=== PATIENT | male | born 1985 | race African-American/Black ===

== ENCOUNTER 2016-07-06 23:01 | Emergency (ER) | payer OTHER ==
[~2016-07-06] VITALS: Ht 190.5 cm; Wt 149.5 kg
[2016-07-07 00:15] LABS: CHLORIDE 106 mEq/L (99-109); POTASSIUM 3.8 mEq/L (3.7-5.4); SODIUM 143 mEq/L (136-147)
[2016-07-07 00:17] LABS: GLUCOSE 96 mg/dL (70-99)
[2016-07-07 00:18] LABS: ANION GAP 10 MEQ/L (2-14)
[2016-07-07 00:21] LABS: GFR ESTIMATE (CALCULATED) > 59 mL/min/
[2016-07-07 00:22] LABS: UREA NITROGEN (BUN) 10 mg/dL (9-23)
[2016-07-07 01:08] LABS: EOSINOPHIL (%) 2.3 % (0-5); EOSINOPHIL COUNT 0.3 K/uL (0-0.3); HEMATOCRIT 43.9 % (38.0-50.0); IMMATURE GRANULOCYTE (%) 0.3 % (0.0-0.7); INSTRUMENT ABS NEUTROPHIL CT 6.3 K/uL; LYMPHOCYTE COUNT 3.6 K/uL (1.0-2.8); MCH 26.5 PG (29.0-34.0); MCHC 32.8 G/DL (30.0-36.0); MCV 80.8 FL (86-99); MEAN PLAT.VOLUME 10.6 uM^3 (9.0-12.4); MONOCYTE (%) 4.6 % (3-12); MONOCYTE COUNT 0.5 K/uL (0-0.8); NEUTROPHIL (%) 58.9 % (45-76); NEUTROPHIL COUNT 6.3 K/uL (1.8-6.4); PLATELET COUNT 255 K/uL (156-360); RBC DIS.WIDTH-CV 14.1 % (11.8-14.6); RBC DIS.WIDTH-SD 41.5 % (39-53); RED BLOOD COUNT 5.43 M/uL (4.00-5.50); WHITE BLOOD COUNT 10.7 K/uL (4.1-10.2)
[2016-07-07 01:51] VITALS: BP 150/95
== END 2016-07-07 01:52 ==
LOC: EME 23:01
PROVIDERS: Physician Assistant
DX: I10 Essential (primary) hypertension (principal); Z91.14 Patient's other noncompliance with medication regimen
CPT/HCPCS: 80048; 81003; 85025; 85027; 99281; 99285